=== PATIENT | male | born 1955 | race Hispanic/Latino ===

== ENCOUNTER 2018-04-23 06:36 | Day surgery (SDC) | payer OTHER ==
[2016-06-30 09:43] VITALS: BMI 22.9
[2018-04-23] MEDS ORDERED: Propofol 10 mg/ml Inj (20 ML) ONE (07:57)
--- NOTE | 2018-04-23 07:57 | CP.SDSHP ---
Same Day Surgery H & P - History Proposed Procedure: COLONSCOPY Pre-Op Diagnosis: SEE NOTES - Previous Medical/Surgical History Cardiac: Hypertension Endocrine/Metabolic: Other Neuro: Other Misc: Other Pain: 2.Mild Pain - Allergies Allergies: Allergies Penicillins Allergy (Intermediate, Verified 04/23/18 06:55) SWELLING & RASH SEAFOOD Allergy (Intermediate, Uncoded 04/23/18 06:55) SWELLING & RASH - Physical Exam General Appearance: N Vital Signs: Vital Signs 04/23/18 06:45 Temperature 98.9 F Pulse Rate 80 Respiratory 20 Rate Blood Pressure 126/80 O2 Sat by Pulse 97 Oximetry Mental Status: Alert & Oriented x3 Neuro: WNL Heart: Other Lungs: WNL GI: Other - {Optional Preform as Required} Breast: WNL Abdomen: Other Rectal: Other Integument: WNL : WNL Ortho: Other ENT: WNL - Impression Pt. Evaluated Today:Candidate for Anesthesia & Procedure: Yes - Date & Time Date: 04/23/18 Short Stay Discharge - Short Stay Discharge Admitting Diagnosis/Reason for Visit: COLON POLYP Disposition: HOME/ ROUTINE
[2018-04-23] MEDS ORDERED: Belladonna-Phenobarbital PO ONE (08:50)
[2018-04-23 10:58] VITALS: TEMP 98
[2018-04-23 11:00] VITALS: O2SAT 100
[2018-04-23 11:13] VITALS: BP 150/75; PULSE 80; RESP 18
== END 2018-04-23 09:45 | disposition home or self-care (01) ==
LOC: C.ENDO 06:36
PROVIDERS: ATTEND Specialist
DX: K52.9 Noninfective gastroenteritis and colitis, unspecified (principal); Z86.010 Personal history of colon polyps; K58.9 Irritable bowel syndrome, unspecified; K64.8 Other hemorrhoids
CPT/HCPCS: 45380; 88305; J2704; J3010